=== PATIENT | female | born 1955 | race Hispanic/Latino ===

== ENCOUNTER 2019-11-29 12:22 | Inpatient (IN) | payer MEDICARE, OTHER ==
[2019-11-29 13:06] LABS: #Eosinphils 0.1 thou/uL (0.0-0.7); #Lymphocytes 1.4 thou/uL (1.20-3.40); #Monocytes 0.7 thou/uL (0.11-0.59); #Neutrophils 6.8 thou/uL (1.40-6.50); %Basophils 0.2 % (0.0-1.0); %Eosinophils 0.6 % (0.0-10.0); %Lymphocytes 15.1 % (21.0-51.0); %Monocytes 7.7 % (0.0-10.0); %Neutrophils 76.5 % (42.0-75.0); Hemoglobin 13.8 g/dL (12.0-16.0); Mean Corpuscular HGB CONC 32.9 g/dL (32.0-36.0); Mean Corpuscular Hemoglobin 29.3 pg (27.0-31.0); Mean Corpuscular Volume 89.2 fL (78.0-98.0); Mean Platelet Volume 8.6 fL (7.4-10.4); Platelet Count 191 thou/uL (130-400); RBC Distribution Width 12.1 % (11.5-14.5); Red Blood Cell (RBC) Count 4.71 mill/uL (4.20-5.40); White Blood Cell (WBC) Count 8.9 thou/uL (4.8-10.8)
[2019-11-29 13:19] LABS: ALT (SGPT) 13 U/L (8-55); AST (SGOT) 49 U/L (5-34); Albumin 3.6 g/dL (3.4-4.8); Alkaline Phosphatase 65 U/L (40-110); Anion Gap 14 mmol/L (10-20); BUN (Urea Nitrogen) 14 mg/dL (9.8-20.1); Bilirubin, Total 0.8 mg/dL (0.2-1.2); CK (CPK) 439 U/L (29-168); Calc. Creatinine Clearance 0 mL/min (70-130); Calcium 9.1 mg/dL (7.8-10.44); Carbon Dioxide 25 mmol/L (23-31); Chloride 103 mmol/L (98-107); Estimated GFR-MDRD 81; Globulin 2.7 g/dL (2.4-3.5); Glucose 114 mg/dL (80-115); Potassium 3.9 mmol/L (3.5-5.1); Protein, Total 6.3 g/dL (6.0-8.3); Sodium 138 mmol/L (136-145)
--- NOTE | 2019-11-29 13:22 | RAD ---
XR Chest 1 View Portable History: Chest pain Comparison: Radiograph November 19, 2019 Findings: Subtle left basilar opacity. Remainder of the lungs are relatively clear. No pneumothorax. No effusion. Impression: Left lower lobe pneumonia/aspiration. Follow-up after treatment recommended.
--- NOTE | 2019-11-29 14:36 | CT ---
Exam: Head CT without contrast HISTORY: Recent aneurysm coiling. Altered mental status. COMPARISON: 11/22/2019 FINDINGS: Hemorrhage: Residual intraparenchymal hematoma centered in the left temporal lobe. Hematoma has decre ased in size and currently measures 1.8 x 0.8 cm. There is associated peripheral cytotoxic edema. Brain parenchyma: Expected evolutionary changes due to a left MCA distribution infarct along with vas ogenic edema involving the left temporal and parietal lobe. The overall degree of edema has decreased since the previous examination. Stable coil massa long thel eft M1 distribution. Preservati on of cortical quintero-white matter in the right cerebrum. 0.2 cm a left right subfalcine herniation. Ventricular system: Ventricles and sulci are patent and symmetric. Calvarium: Intact. Sinuses and mastoid air cells: Adequate aeration. IMPRESSION: 1. Stable coil mass 2. No evidence of new intracranial hemorrhage 3. Improving vasogenic and cytotoxic edema. Residual edema does remain in the left MCA distribution. Improving but persistent left temporal lobe intraparenchymal hematoma.
[2019-11-29] MEDS ORDERED: Enoxaparin Sodium 80 MG/0.8 ML SYRINGE ONE (15:28)
[2019-11-29] MEDS ORDERED: Aspirin Chewable 81 MG TAB ONE (15:37)
--- NOTE | 2019-11-29 15:37 | PDOC.FPRHP ---
- History of Present Illness Chief Complaint: chest pain History of Present Illness: 64 y/o F with PMHx with recent subarachnoid hemorrhage s/p ruptured aneurysm with residual R sided upper extremity weakness and expressive aphasia who was brought to ED after an episode of chest pain during her occupational therapy session this AM. Her family member who is present reports that during the session she became weak, diaphoretic, and was clutching her chest. She also had a few episodes of vomiting and an episode of diarrhea afterwards. An EKG was performed at the rehab facility and is available for review. Patient unable to provide much history due to expressive aphasia. She is no longer clutching her chest and her family member reports that she has not really seemed distressed since that time. She is also pointing to her abdomen when asked about pain. Additional pertinent PMHx includes CAD s/p CABG, hx of ID, HTN, HLD, and DM. ED Course: EKG: bradycardia, T wave inversions in V3-V5 Labs: Troponin 5.88 > 33; CBC, CMP wnl Meds: ASA, therapeutic lovenox 1 mg/kg - Allergies/Adverse Reactions Allergies Allergy/AdvReac Type Severity Reaction Status Date / Time No Known Allergies Allergy Unverified 11/19/19 18:40 - Home Medications Medication Instructions Recorded Confirmed Type Atorvastatin Calcium 80 mg PO DAILY 11/19/19 11/19/19 History Ezetimibe [Zetia] 10 mg PO DAILY 11/19/19 11/19/19 History Losartan Potassium 100 mg PO DAILY 11/19/19 11/19/19 History PARoxetine HCl [Paxil] 10 mg PO DAILY 11/19/19 11/19/19 History metFORMIN [Glucophage] 500 mg PO BID- 11/19/19 11/19/19 History - History PMHx: subarachnoid hemorrhage 2/2 ruptured aneurysm, R sided deficits, expressive aphasia, CAD s/p CABG, hx ID, HTN, HLD, DM PSHx: neurosurgical coil, CABG, Hysterectomy and BSO with bladder suspension FHx: Father - DM, CAD Sisters - Long QT Syndrome, Social: never smoker, non-drinker, with children, walks for exercise - Review of Systems ROS unobtainable: other (limited due to aphasia) Cardiovascular: reports: chest pain Gastrointestinal: reports: nausea, vomiting, diarrhea, abdominal pain - Vital signs BP: 154/90, Pulse: 58, Resp: 26, O2 sat: 95 on (Room Air), Time: 11/29/2019 14: 00. - Physical Exam Constitutional: NAD (awake, alert, unable to assess orientation due to aphasia) HEENT: normocephalic and atraumatic, PERRLA, grossly normal vision, grossly normal hearing Neck: no LAD, no thyromegaly Heart: pulses present, no edema -Heart: bradycardia, regular rhythm -Lungs: crackles L lower lobe, lungs otherwise clear to auscultation Abdomen: soft -Abdomen: mild lower abdominal tenderness over bladder, no rebound, positive bowel sounds Musculoskeletal: normal structure -Neurological: persistent RUE weakness 3/5; bilateral LE with 5/5 strength; L ceiling cleaner strength intact. Gross expressive aphasia but appears to understand most questions. Skin: no rash/lesions, capillary refill <2 seconds Heme/Lymphatic: no unusual bruising or bleeding, no LAD Psychiatric: other (unable to assess due to aphasia) FMR H&P: Results - Labs Result Diagrams: 11/30/19 03:16 11/30/19 03:16 Lab results: WBC 8.9 thou/uL (4.8-10.8) 11/29/19 12:44 Hgb 13.8 g/dL (12.0-16.0) 11/29/19 12:44 Hct 42.0 % (36.0-47.0) 11/29/19 12:44 MCV 89.2 fL (78.0-98.0) 11/29/19 12:44 Plt Count 191 thou/uL (130-400) 11/29/19 12:44 Neutrophils % 76.5 % (42.0-75.0) H 11/29/19 12:44 Sodium 138 mmol/L (136-145) 11/29/19 12:44 Potassium 3.9 mmol/L (3.5-5.1) 11/29/19 12:44 Chloride 103 mmol/L (98-107) 11/29/19 12:44 Carbon Dioxide 25 mmol/L (23-31) 11/29/19 12:44 BUN 14 mg/dL (9.8-20.1) 11/29/19 12:44 Creatinine 0.72 mg/dL (0.6-1.1) 11/29/19 12:44 Glucose 114 mg/dL (80-115) 11/29/19 12:44 Calcium 9.1 mg/dL (7.8-10.44) 11/29/19 12:44 Total Bilirubin 0.8 mg/dL (0.2-1.2) 11/29/19 12:44 AST 49 U/L (5-34) H 11/29/19 12:44 ALT 13 U/L (8-55) 11/29/19 12:44 Alkaline Phosphatase 65 U/L (40-110) 11/29/19 12:44 Creatine Kinase 439 U/L (29-168) H 11/29/19 12:44 CK-MB (CK-2) 59.0 ng/mL (0-6.6) H* 11/29/19 12:44 Serum Total Protein 6.3 g/dL (6.0-8.3) 11/29/19 12:44 Albumin 3.6 g/dL (3.4-4.8) 11/29/19 12:44 - EKG Interpretation EKG: EKG taken at rehab showing NSR with ST segment elevated (not meeting STEMI criteria) in V3-V6. Repeat EKG in ER showing resolution of these elevations and in fact inverted T- waves in the same leads. - Radiology Interpretation Chest x-ray Status: image reviewed by me, report reviewed by me Additional comment: possibly increased density in LLL, stable sternotomy wires CT scan - head Status: report reviewed by me Additional comment: stable compared to prior FMR H&P: A/P - Problem List (1) Chest pain Current Visit: Yes Status: Acute Code(s): R07.9 - CHEST PAIN, UNSPECIFIED - Plan Likely ACS; hx CAD s/p CABG Chest pain with N/V/D and diaphoresis this AM during rehab. EKG from rehab facility reviewed, appears to have had some ST changes although elevations not meeting criteria for STEMI. Initial EKG in ED with no ST elevations, but T wave inversions in I, V4, V5, bradycardia. Repeat troponin over 33. - Cardiology, Dr. Lyeva, consulted - s/p ASA and therapeutic lovenox in the ED - continue to trend troponins, repeat EKG if continues to rise - monitor for symptoms - prn nitro for chest pain - will not do stress test at this time due to rate of rise in troponins - ED physician discussed anti-coagulation with neurosurgery and has approved - NPO, on LR at 110 ml/hr - mg, phos, tsh wnl s/p subarachnoid hemorrhage 2/2 ruptured aneurysm Residual R upper extremity weakness, expressive aphasia, and dyshpagia. Neurosurgery aware of anti-coagulation. - monitor for new neuro deficits Possible LLL aspiration pneumonia Noted on CXR in ED today with some LLL crackles on exam. WBC wnl. Family member reports some aspiration with advancement of diet yesterday. - procalcitonin pending - consider unasyn if procal elevated - monitor for respiratory symptoms Dysphagia s/p subarachnoid hemorrhage - NPO - f/u bedside swallow - REFERENCE INVESTIGATOR consulted for eval and treat Expressive aphasia Tracks well and appears to understand most questions but mumbles when trying to speak. Does answer some yes/no questions by shaking head, but inconsistently. - continue to monitor - REFERENCE INVESTIGATOR consulted Type II DM controlled on admission - continue home meds - mild SSI HTN - continue home meds - maintain SBP <180 HLD - continue home statin Disposition/LOS: Dispo: admit to CCU IVF: mIVF LR 110 ml/hr DVT ppx: therapuetic lovenox Diet: NPO FMR H&P: Upper Level - Pertinent history 64 yo F recently discharged to inpatient rehab following hospitalization for SAH 2/2 left aneurysm, presents from rehab after having acute chest pain, nausea , vomiting, and sweating between 6 and 7 am this morning when working with OT. History provided mostly by daughter and ER. Patient continued to feel unwell. EKG obtained at rehab showing some ST elevation. Labs were obtained at rehab but daughter did not know which labs nor their values. Patient currently denies chest pain. Complains of some belly pain. ROS is limited due to patient's aphasia. - Pertinent findings VS: as above in administration internship note PEx: Gen : NAD, well groomed Neuro: tracks w/ eyes, responds yes/no by shaking head to questions, seems to understand questions but still aphasic in responses, garbled speech, strength 5/ 5 LE b/l, L arm able to move against gravity, R arm deficit c/w previous exam HEENT: PEERLA, EOMI, neck supple/midline. Resp: mild crackles over LLL CV: RRR, no murmurs, chest nonTTP Abd: +BS, mild diffuse tenderness to palpation, soft, nondistended Trop: 5.884. Ten days prior trop was 0.055. - Plan Date/Time: 11/29/19 1537 64 yo F, recent hospitalization for SAH 2/2 left intracranial aneurysm admitted for: ACS rule out DDx: NSTEMI vs unstable angina vs demand ischemia - somewhat bradycardic. EKG changes w/ EKG earlier this morning compared to ER. Appeared to have ST elevations in concurrent leads, not meeting STEMI criteria, that have now resolved. - not currently having chest pain, although patient's symptoms are difficult to assess given recent aphasia/SAH - recent A1c 6.6, and FLP w/ mildly elevated cholesterol - TSH, magnesium, phosphorus pending - Echo on 11/19/19 showed EF 45-50%, mild MR and mild TR - HEART score 9. - LVX 1 mg/kg Possible aspiration PNA - CXR showing increased LLL - setting of speech aphasia and recently advanced diet - consider unasyn for treatment - procalcitonin pending CAD - hx of CABG, double bypass 2010, stents in 2010 and 2013. - Bradycardia: hold beta blockers S/p coiling of left M2 anuerysm causing SAH - maintain SBP <180 - Neurosurg contacted in ER and okay to anticoagulate HTN - SBP < 180 - continue losartan Hyperlipidemia - continue statin and ezetimibe Type 2 DM, controlled - continue metformin - mild SSI, accuchecks q6h Code: FULL Anticoag: LVX Abx: pending procalcitonin Fluids: LR at 110 mL/hr, MIVF IAlicja, PGY-2, have evaluated this patient and agree with findings /plan as outlined by administration internship resident. Pertinent changes/additions are listed above. Addendum - Attending - Attending Attestation Date/Time: 11/30/19 1351 I personally evaluated the patient and discussed the management with Dr. Stone on day of admission. I agree with the History, Examination, Assessment and Plan documented above with any addition or exceptions noted below. Pt s/p COVID (neg test p illness on last admission) with subsequent CVA and now with NSTEMI type 1. Await cardiology recs.
[2019-11-29] MEDS ORDERED: Aspirin 300 MG Suppository ONE (15:38)
[2019-11-29] MEDS ORDERED: Dextrose 5% in Water 1,000 ML IV PRN (16:19)
[2019-11-29] MEDS ORDERED: Dextrose 50% Abboject 50 ML SYRINGE SLOW IVP PRN (16:19)
[2019-11-29] MEDS ORDERED: HumaLOG 300 UNITS/3 ML VIAL SC PRN (16:19)
[2019-11-29] MEDS ORDERED: Nitroglycerin 0.4 MG TAB (25 Tab Bottle) PO PRN (16:49)
[2019-11-29 16:54] LABS: Magnesium 1.7 mg/dL (1.6-2.6); Phosphorus 3.6 mg/dL (2.3-4.7)
--- NOTE | 2019-11-29 17:25 | PDOC.BPN ---
- Brief Progress Note Discussed case w/ Dr. Leyva. Cardiology consult placed. He would like patient in the ICU. He agrees with the aspirin and Lovenox 1 mg/kg dose given in the ER at 15:41. Second troponin resulted at 16:32; result was increased at 33.850 from 5.8. Given recent left M2 aneursym coiling on 11/18, we will continue to monitor in the ICU.
[2019-11-29 19:55] LABS: Critical Call Chem Troponin I RESULT DECREASING; Troponin I 32.424 ng/mL (< 0.028)
--- NOTE | 2019-11-29 21:40 | CON ---
DATE OF CONSULTATION: PRIMARY WAX SPECIALIST: Dk Ragland MD REASON FOR CONSULTATION: Non-ST elevation myocardial infarction. HISTORY OF PRESENT ILLNESS: Ms. Beltran is a 64-year-old woman, who recently was admitted to the hospital with intracranial hemorrhage due to aneurysm and subarachnoid hemorrhage. She had successful coiling done about 10 days ago. She is at the rehab, started clutching her chest. There was an EKG at the rehab, which showed some ST elevation in the anterior chest leads. She was sent here. The pain in her chest resolved in terms of versus indicating that she was holding her chest at that time and later was not doing that, and the EKG showed resolution of the ST elevation. Troponin levels have proven to be elevated. The patient is resting comfortably now. She received 80 mg of Lovenox and a rectal aspirin. PAST MEDICAL HISTORY: She has a complicated cardiac history as outlined extensively by Dr. Ragland. The patient underwent emergency bypass surgery in 2010 at the LAD and obtuse marginal. Later had repeat cardiac catheterization, found to have in-stent restenosis of an LAD stent. It looks like she has done well from a cardiac standpoint up until recently. As mentioned, she did have intracranial hemorrhage. MEDICATIONS: She has received; 1. Aspirin rectally. 2. Subcutaneous Lovenox. REVIEW OF SYSTEMS: Not obtainable. Due to the intracranial hemorrhage, she has aphasia. PHYSICAL EXAMINATION: GENERAL: Cooperative elderly woman. She is aphasic and it sounds like she has receptive and expressive aphasia. VITAL SIGNS: Blood pressure is 130 systolic and pulse in the 70s. LUNGS: Clear. CARDIAC: Normal S1 and normal S2. ABDOMEN: Soft and nontender. EXTREMITIES: Warm and dry. No clubbing. No cyanosis. There is no edema. LABORATORY DATA: The troponin level was 5.8, then went to 33.8. Creatinine 0.7. The EKG did show some ST elevation on EKG at the rehab, it is mild, but there is at least [address]-elevation in V3, 2 mm in V4, and 1 mm in V5, but this followup EKG show resolution of the ST elevation with T-wave inversion. ASSESSMENT: 1. Recent intracranial hemorrhage with subarachnoid bleed, status post successful coiling. 2. Coronary artery disease with previous bypass surgery and stent implantation. 3. Remains aphasic. PLAN: 1. She has received one dose of Lovenox subcutaneously. 2. She has received aspirin. 3. Discussed with the Neurosurgery Service, Flaco Langford, who indicates that it is safe to proceed with anticoagulation. We will notify Dr. Ragland. The patient is unable to eat now, so therefore she will be n.p.o. anyway. As mentioned, she has received aspirin. She received one dose of Lovenox. Further recommendations after Dr. Ragland see the patient tomorrow morning. Job ID: [id number]
[2019-11-29] MEDS: Lactated Ringer's 1,000 ML IV SCH (23:22)
[2019-11-29] MEDS: metFORMIN 500 MG TAB PO SCH (23:23)
[2019-11-30] MEDS: Lactated Ringer's 1,000 ML IV SCH ×2 (01:17→17:20)
[2019-11-30] MEDS ORDERED: Enoxaparin Sodium 40 MG/0.4 ML SYRINGE SC SCH (02:00)
[2019-11-30 03:42] LABS: #Basophils 0.1 thou/uL (0.0-0.2); #Eosinphils 0.1 thou/uL (0.0-0.7); #Lymphocytes 1.8 thou/uL (1.20-3.40); #Monocytes 0.8 thou/uL (0.11-0.59); #Neutrophils 5.2 thou/uL (1.40-6.50); %Basophils 0.7 % (0.0-1.0); %Eosinophils 1.5 % (0.0-10.0); %Lymphocytes 22.6 % (21.0-51.0); %Monocytes 9.9 % (0.0-10.0); %Neutrophils 65.3 % (42.0-75.0); Hemoglobin 13.1 g/dL (12.0-16.0); Mean Corpuscular HGB CONC 34.5 g/dL (32.0-36.0); Mean Corpuscular Hemoglobin 31.4 pg (27.0-31.0); Mean Platelet Volume 8.4 fL (7.4-10.4); Platelet Count 159 thou/uL (130-400); RBC Distribution Width 11.9 % (11.5-14.5); Red Blood Cell (RBC) Count 4.17 mill/uL (4.20-5.40)
[2019-11-30 04:45] LABS: ALT (SGPT) 18 U/L (8-55); AST (SGOT) 92 U/L (5-34); Alkaline Phosphatase 52 U/L (40-110); Anion Gap 11 mmol/L (10-20); BUN (Urea Nitrogen) 11 mg/dL (9.8-20.1); Bilirubin, Total 0.6 mg/dL (0.2-1.2); Calc. Creatinine Clearance 93 mL/min (70-130); Calcium 8.2 mg/dL (7.8-10.44); Carbon Dioxide 27 mmol/L (23-31); Chloride 103 mmol/L (98-107); Estimated GFR-MDRD 90; Globulin 2.6 g/dL (2.4-3.5); Glucose 84 mg/dL (80-115); Potassium 3.5 mmol/L (3.5-5.1); Protein, Total 5.6 g/dL (6.0-8.3); Sodium 137 mmol/L (136-145)
--- NOTE | 2019-11-30 07:22 | PDOC.FM ---
- Subjective Subjective: Pt had no events overnight. Her chest pain is resolved this morning. Continues to be aphasic but appears to understand what you tell her and follows most commands. Nodded when I discussed her getting a cardiac cath today. - Objective Vital Signs & Weight: Vital Signs (12 hours) Temp Pulse Ox 11/30/19 06:58 96 11/30/19 04:00 97.9 F 11/30/19 00:00 98.3 F 11/29/19 22:45 98.3 F 95 Weight Weight 69.9 kg Most Recent Monitor Data Heart Rate from ECG 49 NIBP 144/73 NIBP BP-Mean 96 Respiration from ECG 19 SpO2 98 I&O: 11/29/19 11/30/19 12/01/19 06:59 06:59 06:59 Intake Total 407 Output Total 0 Balance 407 Result Diagrams: 11/30/19 03:16 11/30/19 03:16 Phys Exam - Physical Examination Constitutional: NAD HEENT: moist MMs, sclera anicteric Neck: full ROM Respiratory: no wheezing, clear to auscultation bilateral no signs of respiratory distress Mildly bradycardic, did not hear murmur heard during previous admission Gastrointestinal: soft, non-tender, no distention Musculoskeletal: no edema, pulses present 2/5 strength in RUE, 4/5 RLE, 5/5 left extremities, mostly aphasic Follows most commands Deviation from normal: Flat affect Skin: no rash, cap refill <2 seconds Dx/Plan - Plan Plan: 64yo F w/ hx of CAD s/p CABG presented to ED from rehab center for CP, found to have NSTEMI. Recently admitted for subarachnoid and parenchymal hemorrhage of left temporal due to M2 aneurysm that was coiled on 11/18. CREDIT OFFICER -s/p coiling for subarachnoid and parenchymal hemorrhage from M2 aneurysm on 11/18 -expressive aphasia and residual right sided weakness and dysphagia -PT/OT/Speech, bed side swallow Cards -Bradycardic w/ no chest pain currently -Cardiology consulted for bradycardia during previous admission and noted as benign, avoid beta-blockers and NDHP -NSTEMI - Classic angina with exertion with trop trend 5 > 33 > 32 -EKG at rehab showed ST elevations not meeting STEMI criteria, ED EKG T wave inversion in I, V4, V5 -Received ASA and therapeutic lovenox in ED -Cards discussed anticoag with neurosurg prior 2/2 recent coiling and brain bleed -Cardiology consulted, Dr. Leyva planning for cardiac cath today -Hx HTN: hold home meds for now -Maintain BP <180 2/2 recent coiling and brain bleed Pulm -Satting 98% on RA, non labored breathing -CXR in ED showing LLL infiltrate resembling aspiration/pna -Pt is asx and without signs/sx consistent w/ this, will defer treatment for now GI/F/E/N -Normal abdominal exam -NPO for procedure, pending bedside swallow prior to diet being resumed -Hx Type II DM, takes metformin, recently was on steroids for brain edema -SSI and resume home rx once tolerating PO -IVF: LR @ 110 I/D -No current abx therapy as pt showing no signs/sx from CXR findings to indicate PNA Disposition/LOS: Dispo: admit to CCU IVF: mIVF LR 110 ml/hr DVT ppx: therapuetic lovenox pre procedural, now held Diet: NPO, pending procedure and bedside swallow PLAN: Pt currently appears stable. No active chest pain indicated. Plan is for cardiac cath to be done today. Following this and pending results pt is to have bedside swallow to assess for dysphagia and PO tolerance. Will continue to monitor BP due to risks associated with recent coiling/brain bleed. Addendum - Attending - Attending Attestation Date/Time: 11/30/19 1161 I personally evaluated the patient and discussed the management with Dr. Blue. I agree with the History, Examination, Assessment and Plan documented above with any addition or exceptions noted below.
[2019-11-30] MEDS ORDERED: Communication Order-Pharmacy FS SCH (08:15)
[2019-11-30] MEDS ORDERED: Sodium Chloride 0.9% 1,000 ML IV SCH (08:15)
[2019-11-30] MEDS ORDERED: Heparin 10,000 UNITS/ 10 ML VIAL ONE (08:24)
[2019-11-30] MEDS ORDERED: Fentanyl 100 MCG/2 ML VIAL ONE (08:56)
[2019-11-30] MEDS ORDERED: Adenosine 6 MG/2 ML VIAL ONE (09:28)
[2019-11-30] MEDS ORDERED: Iopamidol 370 76% 50 ML VIAL FS ONE (10:49)
[2019-11-30] MEDS ORDERED: Morphine 2 MG/ML VIAL SLOW IVP PRN (10:49)
[2019-11-30] MEDS ORDERED: Iopamidol 370 76% 100 ML VIAL ONE (10:49)
[2019-11-30] MEDS: Sodium Chloride 0.9% 1,000 ML IV SCH ×2 (11:00→17:15)
[2019-11-30] MEDS: Losartan 25 MG TAB PO SCH (11:57)
[2019-11-30] MEDS: Ezetimibe 10 MG TAB PO SCH (11:58)
[2019-11-30] MEDS: Atorvastatin Calcium 40 MG TAB PO SCH (11:58)
[2019-11-30] MEDS: PARoxetine 20 MG TAB PO SCH (11:58)
[2019-11-30 15:47] LABS: SARS-CoV-2 MS2 Positive; SARS-CoV-2 N Gene Negative; SARS-CoV-2 S Gene Negative; SARS-CoV-2 by NAA Not Detected (NotDetected); SARS-CoV-2 orf1ab Negative
[2019-11-30] MEDS ORDERED: metFORMIN 500 MG TAB PO SCH (17:00)
[2019-11-30] MEDS: metFORMIN 500 MG TAB PO SCH (17:19)
[2019-11-30] MEDS ORDERED: Lactated Ringer's 1,000 ML IV SCH (23:45)
--- NOTE | 2019-12-01 00:33 | CON ---
DATE OF CONSULTATION: 11/30/2019 HISTORY OF PRESENT ILLNESS: Ms. Beltran is 64-year-old female who recently had an aneurysm bleed. This was coiled. She started having chest discomfort and was transferred here for further evaluation, has been seen by Cardiology. She was taken to the technical laboratory asst. She denies having chest pain at this time. PAST MEDICAL HISTORY: Remarkable for: 1. Coronary bypass grafting in 2010. 2. History of cardiac catheterization with stenting in the past. 3. History of recent aneurysmal bleed. 4. History of lipid disorder. 5. History of diabetes. 6. History of hypertension. SOCIAL HISTORY: She is a nonsmoker and nondrinker. ALLERGIES: SHE HAS NO ALLERGIES REPORTED. REVIEW OF SYSTEMS: Otherwise negative. PHYSICAL EXAMINATION: GENERAL: She is in no distress. VITAL SIGNS: She is afebrile, heart rate 66, blood pressure 132/63. HEENT: Pupils reactive. Sclerae are anicteric. NECK: Without lymphadenopathy. LUNGS: Clear. HEART: Regular rhythm. S1 and S2 are normal. ABDOMEN: Soft and nontender. EXTREMITIES: Without clubbing, cyanosis or edema. NEUROLOGIC: Grossly nonfocal. LABORATORY DATA: White count 8, hemoglobin 13.1, platelets 159. Electrolytes are normal. Coags were normal back on the 18 of November. COVID screen was negative yesterday. IMPRESSION: She appears to be stable from a cardiac and pulmonary standpoint. We will follow with the other physicians caring for her. This is a 70 min visit with greater than 50% of the time spent on the unit with coordination of care. Job ID: [id number] [facility]
[2019-12-01 04:09] LABS: #Eosinphils 0.1 thou/uL (0.0-0.7); #Monocytes 0.6 thou/uL (0.11-0.59); #Neutrophils 4.3 thou/uL (1.40-6.50); %Basophils 0.8 % (0.0-1.0); %Eosinophils 1.5 % (0.0-10.0); %Lymphocytes 16.9 % (21.0-51.0); %Monocytes 10.4 % (0.0-10.0); %Neutrophils 70.4 % (42.0-75.0); Hemoglobin 12.2 g/dL (12.0-16.0); Mean Corpuscular HGB CONC 33.6 g/dL (32.0-36.0); Mean Corpuscular Hemoglobin 30.1 pg (27.0-31.0); Mean Corpuscular Volume 89.5 fL (78.0-98.0); Mean Platelet Volume 8.4 fL (7.4-10.4); Platelet Count 150 thou/uL (130-400); Red Blood Cell (RBC) Count 4.06 mill/uL (4.20-5.40); White Blood Cell (WBC) Count 6.1 thou/uL (4.8-10.8)
[2019-12-01 04:32] LABS: ALT (SGPT) 15 U/L (8-55); AST (SGOT) 54 U/L (5-34); Albumin 2.8 g/dL (3.4-4.8); Alkaline Phosphatase 49 U/L (40-110); Anion Gap 11 mmol/L (10-20); BUN (Urea Nitrogen) 7 mg/dL (9.8-20.1); Bilirubin, Total 0.6 mg/dL (0.2-1.2); Calc. Creatinine Clearance 105 mL/min (70-130); Calcium 8.2 mg/dL (7.8-10.44); Carbon Dioxide 27 mmol/L (23-31); Chloride 104 mmol/L (98-107); Estimated GFR-MDRD Greater than 90; Globulin 2.5 g/dL (2.4-3.5); Glucose 79 mg/dL (80-115); Potassium 3.5 mmol/L (3.5-5.1); Protein, Total 5.3 g/dL (6.0-8.3); Sodium 138 mmol/L (136-145)
[2019-12-01 05:12] VITALS: BMI 26.7
--- NOTE | 2019-12-01 06:56 | PDOC.FM ---
- Subjective Subjective: Cath yesterday. Showed 2 vessel disease and thrombus in LAD graft that they couldn't remove. Tolerated procedure well. No events overnight. Remains NPO pending SIGNAL MAINTAINER HELPER assessment. - Objective Vital Signs & Weight: Vital Signs (12 hours) Temp Pulse Ox 12/01/19 04:00 98.2 F 12/01/19 00:00 98.0 F 11/30/19 20:00 95 11/30/19 19:00 98.9 F Weight Weight 70.3 kg Most Recent Monitor Data Heart Rate from ECG 57 NIBP 125/68 NIBP BP-Mean 87 Respiration from ECG 15 SpO2 95 I&O: 11/29/19 11/30/19 12/01/19 06:59 06:59 06:59 Intake Total 407 2642 Output Total 0 Balance 407 2642 Result Diagrams: 12/01/19 03:58 12/01/19 03:58 Phys Exam - Physical Examination Constitutional: NAD HEENT: moist MMs, sclera anicteric Respiratory: no wheezing, clear to auscultation bilateral Mildly bradycardic in 50's, short systolic murmur left sternal Gastrointestinal: soft, non-tender Musculoskeletal: no edema, pulses present Right hand 2/5, RLE 4/5, Left extremities 5/5, aphasic Deviation from normal: Flat affect Skin: no rash, cap refill <2 seconds Dx/Plan - Plan Plan: Plan: 64yo F w/ hx of CAD s/p CABG presented to ED from rehab center for CP, found to have NSTEMI. Recently admitted for subarachnoid and parenchymal hemorrhage of left temporal due to M2 aneurysm that was coiled on 11/18. 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 Ragland - 2 Vessel disease in LAD and Cx, LAD graft had thrombus that was unable to be removed with thrombectomy, patent OM graft, Moderate LV dysfunction - medical management with baby asa, statin, glycemic control, BP control -Received ASA and therapeutic lovenox in ED -Cards discussed anticoag with neurosurg prior 2/2 recent coiling and brain bleed -Hx HTN: hold home meds for now -Maintain BP <180 2/2 recent coiling and brain bleed Pulm -Satting 97% on RA, non labored breathing GI/F/E/N -Normal abdominal exam -NPO pending SIGNAL MAINTAINER HELPER exam -NG tube in place for coughing/dysphagia to reduce aspiration risk -Hx Type II DM - Having couple lower sugars while NPO, D5 1/2 NS if sugars <75 -IVF: LR @ 125 Heme/I/D -No current abx therapy as pt showing no signs/sx from CXR findings to indicate PNA Disposition/LOS: Dispo: admit to CCU IVF: mIVF LR 125 ml/hr DVT ppx: SCD Diet: NPO, SIGNAL MAINTAINER HELPER eval PLAN: Currently stable without chest pain. Cath yesterday diagnostic only with no successful interventions. Will continue medical management of pts CAD. SIGNAL MAINTAINER HELPER assessment for dysphagia and failed bedside swallow. Transfer to tele today. Plan to return to inpt rehab. Addendum - Attending - Attending Attestation Date/Time: 12/01/19 [id number] I personally evaluated the patient and discussed the management with Dr. Blue. I agree with the History, Examination, Assessment and Plan documented above with any addition or exceptions noted below.
[2019-12-01] MEDS: Dextrose 5 %-0.45 % NaCl 1,000 ML IV SCH ×2 (08:04→15:15)
[2019-12-01] MEDS: Lactated Ringer's 1,000 ML IV SCH ×2 (08:19→15:49)
[2019-12-01] MEDS: Atorvastatin Calcium 40 MG TAB PO SCH (09:02)
[2019-12-01] MEDS: Aspirin Chewable 81 MG TAB PO SCH (09:02)
[2019-12-01] MEDS: Losartan 25 MG TAB PO SCH (09:02)
[2019-12-01] MEDS: PARoxetine 20 MG TAB PO SCH (09:03)
[2019-12-01] MEDS: Ezetimibe 10 MG TAB PO SCH (09:03)
[2019-12-01] MEDS ORDERED: Aluminum & Magnesium Hydroxide 60 ML, diphenhydrAMINE 150 MG, Lidocaine 2% Viscous Solu... SSW PRN (09:45)
--- NOTE | 2019-12-01 18:53 | PRG ---
DATE OF SERVICE: 12/01/2019 SUBJECTIVE: Kylah Beltran has no new complaints. She is tentatively scheduled to move out of the Critical Care Unit. OBJECTIVE: VITAL SIGNS: Heart rates in the 50s, blood pressure 142/69, respiratory rates in the teens. She has been walking in the [place] with Physical Therapy. LUNGS: Clear. HEART: Regular rhythm. ABDOMEN: Soft. LABORATORY DATA: White count 6.1, hemoglobin 12.2, platelets 150,000. Electrolytes are normal. Creatinine 0.58. IMPRESSION: Status post cardiac catheterization emergently, clinically stable. She is probably a candidate to go straight back to rehab, given her stability here in 24 to 48 hours. We will sign off. Job ID: [id number]
[2019-12-02] MEDS: Dextrose 5 %-0.45 % NaCl 1,000 ML IV SCH (01:37)
--- NOTE | 2019-12-02 05:34 | PDOC.EVN ---
Event Note - Event Note Event Note: reported to me an episode of NSVTach will order repeat labs and mag
[2019-12-02 06:14] LABS: Anion Gap 7 mmol/L (10-20); BUN (Urea Nitrogen) Less than 4 mg/dL (9.8-20.1); Calc. Creatinine Clearance 100 mL/min (70-130); Calcium 8.2 mg/dL (7.8-10.44); Carbon Dioxide 30 mmol/L (23-31); Chloride 106 mmol/L (98-107); Estimated GFR-MDRD Greater than 90; Glucose 145 mg/dL (80-115); Magnesium 1.5 mg/dL (1.6-2.6); Potassium 3.2 mmol/L (3.5-5.1); Sodium 140 mmol/L (136-145)
--- NOTE | 2019-12-02 06:53 | PDOC.FM ---
- Subjective Subjective: Pt had 4 beats of multifocal tachycardia with 2 ventricular beats. She was asx at this time. BMP and lytes drawn and replaced accordingly. Otherwise no events overnight. Pt has no complaints this morning that she attempts to express. - Objective Vital Signs & Weight: Vital Signs (12 hours) Temp Pulse Resp BP Pulse Ox 12/02/19 03:47 97.9 F 52 L 14 138/63 97 12/02/19 00:00 128/61 12/01/19 20:30 97.4 F L 53 L 16 144/64 H 95 12/01/19 19:00 98.1 F Weight Weight 69.808 kg Most Recent Monitor Data Heart Rate from ECG 56 NIBP 127/54 NIBP BP-Mean 78 Respiration from ECG 18 SpO2 96 I&O: 11/30/19 12/01/19 12/02/19 06:59 06:59 06:59 Intake Total 407 2642 1957 Output Total 0 Balance 407 2642 1957 Result Diagrams: 12/01/19 03:58 12/02/19 14:09 Phys Exam - Physical Examination Constitutional: NAD HEENT: moist MMs, sclera anicteric Respiratory: no wheezing, clear to auscultation bilateral Cardiovascular: RRR short systolic murmur, left sternal border Gastrointestinal: soft, non-tender Musculoskeletal: no edema Poorly follows commands this morning - attempts different actions aphasic Skin: no rash, cap refill <2 seconds Dx/Plan - Plan Plan: 64yo F w/ hx of CAD s/p CABG presented to ED from rehab center for CP, found to have NSTEMI. Recently admitted for subarachnoid and parenchymal hemorrhage of left temporal due to M2 aneurysm that was coiled on 11/18. 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 Ragland - 2 Vessel disease in LAD and Cx, LAD graft had thrombus that was unable to be removed with thrombectomy, patent OM graft, Moderate LV dysfunction - medical management with baby asa, statin, glycemic control, BP control -Hx HTN: resume home rx -Maintain BP <180 2/2 recent coiling and brain bleed Pulm -Satting 98% on RA, non labored breathing GI/F/E/N -Normal abdominal exam -CC diet with OUTPATIENT COORDINATOR modifications -Hx Type II DM - SSI, metformin Heme/I/D -No current abx therapy as pt showing no signs/sx from CXR findings to indicate PNA Disposition/LOS: Dispo: admit to tele, ELOS 1-2 days IVF: SL DVT ppx: SCD Diet: CC - OUTPATIENT COORDINATOR modifications PLAN: Tele monitoring to confirm stability following ACS event. Discussed with Dr. Ragland - pt will likely be able to return to inpt rehab tomorrow as long as no changes in her clinical course. Cont therapies while here. Addendum - Attending - Attending Attestation Date/Time: 12/02/19 6816 I personally evaluated the patient and discussed the management with Dr. Blue. I agree with the History, Examination, Assessment and Plan documented above with any addition or exceptions noted below.
[2019-12-02] MEDS ORDERED: Potassium Chloride 40 MEQ in Sodium Chloride 0.9% 250 ML 250 ML IVPB SCH (07:00)
[2019-12-02] MEDS: Losartan 25 MG TAB PO SCH (08:39)
[2019-12-02] MEDS: PARoxetine 20 MG TAB PO SCH (08:40)
[2019-12-02] MEDS: Atorvastatin Calcium 40 MG TAB PO SCH (08:40)
[2019-12-02] MEDS: Ezetimibe 10 MG TAB PO SCH (08:40)
[2019-12-02] MEDS: Aspirin Chewable 81 MG TAB PO SCH (08:41)
[2019-12-02 14:37] LABS: Magnesium 1.7 mg/dL (1.6-2.6)
[2019-12-03 04:53] LABS: Anion Gap 11 mmol/L (10-20); BUN (Urea Nitrogen) Less than 4 mg/dL (9.8-20.1); Calc. Creatinine Clearance 109 mL/min (70-130); Carbon Dioxide 26 mmol/L (23-31); Chloride 105 mmol/L (98-107); Potassium 3.3 mmol/L (3.5-5.1); Sodium 139 mmol/L (136-145)
[2019-12-03 04:54] LABS: Calcium 8.5 mg/dL (7.8-10.44); Estimated GFR-MDRD Greater than 90; Glucose 97 mg/dL (80-115); Magnesium 1.7 mg/dL (1.6-2.6)
--- NOTE | 2019-12-03 07:01 | PDOC.FM ---
- Subjective Subjective: No events overnight. No further telemetry events, remained sinus jer. Denies any pain this morning. - Objective Vital Signs & Weight: Vital Signs (12 hours) Temp Pulse Resp BP Pulse Ox 12/03/19 04:00 97.8 F 53 L 20 112/58 L 97 12/02/19 19:35 98.5 F 56 L 16 138/65 95 Weight Weight 73.663 kg Most Recent Monitor Data Heart Rate from ECG 56 NIBP 127/54 NIBP BP-Mean 78 Respiration from ECG 18 SpO2 96 I&O: 12/02/19 12/03/19 12/04/19 06:59 06:59 06:59 Intake Total 1957 550 Balance 1957 550 Result Diagrams: 12/01/19 03:58 12/03/19 03:54 Phys Exam - Physical Examination Constitutional: NAD HEENT: moist MMs No resp distress Sinus jer, short syst murmur Gastrointestinal: soft, non-tender largely aphasic, minimal movements in right hand, moving all other extrem Skin: cap refill <2 seconds Dx/Plan - Plan Plan: 64yo F w/ hx of CAD s/p CABG presented to ED from rehab center for CP, found to have NSTEMI. Recently admitted for subarachnoid and parenchymal hemorrhage of left temporal due to M2 aneurysm that was coiled on 11/18. 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 Ragland - 2 Vessel disease in LAD and Cx, LAD graft had thrombus that was unable to be removed with thrombectomy, patent OM graft, Moderate LV dysfunction - medical management with baby asa, statin, glycemic control, BP control - cardiac rehab -Hx HTN: resume home rx, controlled -Maintain BP <180 2/2 recent coiling and brain bleed Pulm -Satting 97% on RA, non labored breathing GI/F/E/N -Normal abdominal exam -CC diet with MARINE ENGINEERING TECHNICIANS modifications -Hx Type II DM - SSI, metformin Heme/I/D -Cell counts WNL -No abx Disposition/LOS: Dispo: admit to tele, ELOS 1-2 days IVF: SL DVT ppx: SCD Diet: CC - MARINE ENGINEERING TECHNICIANS modifications PLAN: Tele monitoring. Arranging placement back in inpt rehab for therapies. Pt otherwise stable. Continue medical management of CAD. Addendum - Attending - Attending Attestation Date/Time: 12/03/19 6048 I personally evaluated the patient and discussed the management with Dr. Blue. I agree with the History, Examination, Assessment and Plan documented above with any addition or exceptions noted below.
[2019-12-03] MEDS ORDERED: Potassium Chloride 20 MEQ TAB PO SCH (07:15)
--- NOTE | 2019-12-03 08:12 | EKG ---
Test Reason : POST CATH Blood Pressure : / mmHG Vent. Rate : 060 BPM Atrial Rate : 060 BPM P-R Int : 178 ms QRS Dur : 094 ms QT Int : 520 ms P-R-T Axes : 049 013 177 degrees QTc Int : 520 ms Normal sinus rhythm Inferior infarct (cited on or before 19-NOV-2019) Marked T wave abnormality, consider anterolateral ischemia Prolonged QT Abnormal ECG When compared with ECG of 29-NOV-2019 17:12, (Unconfirmed) T wave inversion now evident in Inferior leads T wave inversion more evident in Anterior leads QT has lengthened Confirmed by DR. Doron RODRIGUEZ ([id number]) on 12/03/2019 8:11:49 AM Referred By: IZABELLA Confirmed By:DR. Doron RODRIGUEZ
[2019-12-03] MEDS: Aspirin Chewable 81 MG TAB PO SCH (08:16)
[2019-12-03] MEDS: PARoxetine 20 MG TAB PO SCH (08:17)
[2019-12-03] MEDS: Atorvastatin Calcium 40 MG TAB PO SCH (08:17)
[2019-12-03] MEDS: Ezetimibe 10 MG TAB PO SCH (08:18)
[2019-12-03] MEDS: Losartan 25 MG TAB PO SCH (08:18)
--- NOTE | 2019-12-03 16:37 | EKG ---
Test Reason : Blood Pressure : / mmHG Vent. Rate : 059 BPM Atrial Rate : 059 BPM P-R Int : 192 ms QRS Dur : 098 ms QT Int : 518 ms P-R-T Axes : 062 023 207 degrees QTc Int : 512 ms Sinus bradycardia Inferior infarct (cited on or before 19-NOV-2019) Prolonged QT Abnormal ECG When compared with ECG of 30-NOV-2019 11:30, (Unconfirmed) Serial changes of Inferior infarct Present Confirmed by DR. Doron RODRIGUEZ ([id number]) on 12/03/2019 4:37:02 PM Referred By: IZABELLA Confirmed By:DR. Doron RODRIGUEZ
--- NOTE | 2019-12-04 05:49 | PDOC.FM ---
- Subjective Subjective: Patient with no acute concerns, more expressive than yesterday but with nonsensical speech. - Objective MAR Reviewed: Yes Vital Signs & Weight: Vital Signs (12 hours) Temp Pulse Resp BP Pulse Ox 12/04/19 04:00 98.5 F 48 L 20 125/60 96 12/03/19 20:05 95 12/03/19 19:31 98.3 F 54 L 16 130/68 95 Weight Weight 73.663 kg Most Recent Monitor Data Heart Rate from ECG 56 NIBP 127/54 NIBP BP-Mean 78 Respiration from ECG 18 SpO2 96 I&O: 12/02/19 12/03/19 12/04/19 06:59 06:59 06:59 Intake Total 1957 550 360 Balance 1957 550 360 Result Diagrams: 12/01/19 03:58 12/03/19 03:54 Phys Exam - Physical Examination Constitutional: NAD Respiratory: no wheezing, no rales, no rhonchi, clear to auscultation bilateral Cardiovascular: RRR, no significant murmur, no rub Gastrointestinal: soft, non-tender, no distention, positive bowel sounds Musculoskeletal: no edema Dx/Plan - Plan Plan: Plan: 64yo F w/ hx of CAD s/p CABG presented to ED from rehab center for CP, found to have NSTEMI. Recently admitted for subarachnoid and parenchymal hemorrhage of left temporal due to M2 aneurysm that was coiled on 11/18. 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 Ragland - 2 Vessel disease in LAD and Cx, LAD graft had thrombus that was unable to be removed with thrombectomy, patent OM graft, Moderate LV dysfunction - medical management with baby asa, statin, glycemic control, BP control - cardiac rehab -Hx HTN: resume home rx, controlled -Maintain BP <180 2/2 recent coiling and brain bleed Pulm -Satting 97% on RA, non labored breathing GI/F/E/N -Normal abdominal exam -CC diet with LAND LAW EXAMINER modifications -Hx Type II DM - SSI, metformin Heme/I/D -Cell counts WNL -No abx Disposition/LOS: Dispo: admit to tele, ELOS <48 hrs IVF: SL DVT ppx: SCD Diet: CC - LAND LAW EXAMINER modifications PLAN: Tele monitoring. Arranging placement back in inpt rehab for therapies. Pt otherwise stable. Continue medical management of CAD. Patient likely to d/c tomorrow. Addendum - Attending - Attending Attestation Date/Time: 12/04/19 4743 I personally evaluated the patient and discussed the management with Dr. Michael. I agree with the History, Examination, Assessment and Plan documented above with any addition or exceptions noted below.
[2019-12-04] MEDS: Losartan 25 MG TAB PO SCH (09:41)
[2019-12-04] MEDS: Aspirin Chewable 81 MG TAB PO SCH (09:41)
[2019-12-04] MEDS: Ezetimibe 10 MG TAB PO SCH (09:41)
[2019-12-04] MEDS: PARoxetine 20 MG TAB PO SCH (09:42)
[2019-12-04] MEDS: Atorvastatin Calcium 40 MG TAB PO SCH (09:42)
[2019-12-04 12:43] VITALS: BP 122/60
[2019-12-04 17:06] VITALS: TEMP 97.5
--- NOTE | 2019-12-04 22:28 | DIS ---
DATE OF ADMISSION: 11/29/2019 DATE OF DISCHARGE: 12/04/2019 RESIDENT: Abhijeet Michael MD ADMITTING ATTENDING: Reggie Donaldson MD DISCHARGE ATTENDING: Reggie Donaldson MD CONSULTS: 1. Cardiology, Dr. Leyva. 2. Pulmonology, Dr. Mathews. PROCEDURES: None. PRIMARY DIAGNOSIS: Ahr-RK-pstesvdyn myocardial infarction. SECONDARY DIAGNOSES: Dysphagia, left lower lobe aspiration pneumonia, history of subarachnoid hemorrhage due to aneurysm, coronary artery disease status post coronary artery bypass grafting, history of myocardial infarction, diabetes, hypertension, hyperlipidemia. DISCHARGE MEDICATIONS: 1. Atorvastatin 80 mg p.o. daily. 2. Zetia 10 mg p.o. daily. 3. Losartan 100 mg p.o. daily. 4. Paxil 10 mg p.o. daily. 5. Aspirin 81 mg p.o. daily. 6. Metformin 500 mg p.o. b.i.d. DISCONTINUED MEDICATIONS: None. HISTORY OF PRESENT ILLNESS/HOSPITAL COURSE: The patient is a 64-year-old female with past medical history of recent subarachnoid hemorrhage due to ruptured aneurysm with residual right-sided upper extremity weakness and expressive aphasia, who was brought to emergency room after an episode of chest pain during her occupational therapy session. Her family member who was present and reports that the patient became weak, diaphoretic, and was pressing her chest. She also had few episodes of vomiting and an episode of diarrhea afterwards. The patient was unable to give history due to expressive aphasia. In the ER, the patient's troponin was elevated and repeat trended to 33. Cardiology was consulted, the patient got therapeutic Lovenox in the ER. She only received one dose due to recent hemorrhage. The patient got a cath per Cardiology, which showed the thrombus in LAD graft, which they were unable to remove. After the cath, the patient was treated medically. Given her recent hemorrhage, the patient was placed on 81 mg of aspirin everyday. She remained stable in the hospital with no more episodes of chest pain. She continued to have expressive aphasia, but was able to follow commands and seems to understand what we were telling her. The patient was discharged back to inpatient rehab. DISPOSITION: Stable. DISCHARGE INSTRUCTIONS: 1. Location: Inpatient rehab at [facility]. 2. Diet: Her speech therapy. 3. Activity: No restrictions, guidance from occupational and physical therapist at rehab. 4. Followup: Please follow up with her primary care physician, Dr. Cabello within [address] Ragland, container repairer within 14 days. Job ID: [id number] MTDD
--- NOTE | 2019-12-21 14:34 | EKG ---
Test Reason : CP Blood Pressure : / mmHG Vent. Rate : 061 BPM Atrial Rate : 061 BPM P-R Int : 182 ms QRS Dur : 100 ms QT Int : 428 ms P-R-T Axes : 043 003 121 degrees QTc Int : 430 ms Normal sinus rhythm Inferior infarct , age undetermined T wave abnormality, consider lateral ischemia Abnormal ECG Confirmed by MISSY TAY DO ([id number]), department editor MARANDA ZULETA ([id number]) on 12/21/2019 2:34:20 PM Referred By: JASVIR Confirmed By:MISSY TAY DO
--- NOTE | 2019-12-21 14:36 | EKG ---
Test Reason : ELEVATED TROPI Blood Pressure : / mmHG Vent. Rate : 062 BPM Atrial Rate : 062 BPM P-R Int : 178 ms QRS Dur : 094 ms QT Int : 450 ms P-R-T Axes : 036 007 121 degrees QTc Int : 456 ms Normal sinus rhythm Inferior infarct , age undetermined T wave abnormality, consider lateral ischemia T wave inversion V4-V6, worse than prior Abnormal ECG Confirmed by MISSY TAY DO ([id number]), metropolitan editor MARANDA ZULETA ([id number]) on 12/21/2019 2:36:32 PM Referred By: JASVIR Confirmed By:MISSY TAY DO
== END 2019-12-04 18:20 | DRG 250 ==
LOC: ERS 12:22 → CCU 15:36 → 2NO 12-01 20:59
PROVIDERS: ADMIT Emergency Medicine; ATTEND Emergency Medicine
PROC: 02C03ZZ Extirpation of Matter from Coronary Artery, One Artery, Percutaneous Approach (ICD-10-PCS; principal; 2019-11-30)
PROC: 4A023N7 Measurement of Cardiac Sampling and Pressure, Left Heart, Percutaneous Approach (ICD-10-PCS; 2019-11-30)
PROC: B2111ZZ Fluoroscopy of Multiple Coronary Arteries using Low Osmolar Contrast (ICD-10-PCS; 2019-11-30)
PROC: B2131ZZ Fluoroscopy of Multiple Coronary Artery Bypass Grafts using Low Osmolar Contrast (ICD-10-PCS; 2019-11-30)
PROC: B2151ZZ Fluoroscopy of Left Heart using Low Osmolar Contrast (ICD-10-PCS; 2019-11-30)
DX: T82.867A Thrombosis due to cardiac prosthetic devices, implants and grafts, initial encounter (principal); I21.A1 Myocardial infarction type 2; J69.0 Pneumonitis due to inhalation of food and vomit; I69.151 Hemiplegia and hemiparesis following nontraumatic intracerebral hemorrhage affecting right dominant side; I47.2 Ventricular tachycardia; Y83.2 Surgical operation with anastomosis, bypass or graft as the cause of abnormal reaction of the patient, or of later complication, without mention of misadventure at the time of the procedure; R13.10 Dysphagia, unspecified; I25.10 Atherosclerotic heart disease of native coronary artery without angina pectoris; E11.9 Type 2 diabetes mellitus without complications; I10 Essential (primary) hypertension; R00.1 Bradycardia, unspecified; E78.5 Hyperlipidemia, unspecified; Z20.828 Contact with and (suspected) exposure to other viral communicable diseases; Z95.1 Presence of aortocoronary bypass graft; I25.2 Old myocardial infarction; I69.120 Aphasia following nontraumatic intracerebral hemorrhage; Z79.899 Other long term (current) drug therapy; Z79.84 Long term (current) use of oral hypoglycemic drugs; Z90.710 Acquired absence of both cervix and uterus; Z90.722 Acquired absence of ovaries, bilateral; Z95.5 Presence of coronary angioplasty implant and graft; I69.191 Dysphagia following nontraumatic intracerebral hemorrhage
CPT/HCPCS: 36415; 36416; 70450; 71045; 80048; 80053; 82550; 82553; 83735; 84100; 84145; 84443; 84484; 85025; 85347; 87635; 92973; 93005; 93010; 93459; 93798; 94760; 96360; 96361; 96372; C1757; J0153; J1644; J1650; J3010; J3475; J3480; J3490; J7050; Q0163; Q9967; U0003

== ENCOUNTER 2019-12-23 12:51 | Outpatient (CLI) | payer MEDICARE ==
--- NOTE | 2019-12-23 13:14 | CT ---
Head CT without contrast: 12/23/2019 COMPARISON: 11/29/2019 and prior HISTORY: Recent intracranial hemorrhage with coil embolization of intracranial aneurysm TECHNIQUE: Axial CT imaging at 4.5 mm intervals from vertex through skull base without contrast. FINDINGS: Metallic density in the region of the MCA bifurcation on the left again noted, evidence of prior coil embolization. The hemorrhage posterior and lateral to the embolization coils has resolved since the prior exam. The previous study demonstrated left to right midline shift, which has resolved as well. There is hypodensity within the temporal lobe on the left, the left parietal lobe, and foci of hypodensity are seen scattered throughout the deep and subcortical white matter of the left frontal lobe, evidence of areas of prior infarction, subacute/chronic in nature, with interval decrease in the previously noted cytotoxic edema. No acute hemorrhage, midline shift, or mass effect is seen on this examination there IMPRESSION: Interval resolution of previously noted left-sided hemorrhage adjacent to the coil emboli zation. Interval evolution of left-sided infarctions.
== END 2019-12-23 12:52 | disposition home or self-care (01) ==
LOC: TBSIIMAG 12:51
PROVIDERS: ATTEND Neurological Surgery
DX: S06.6X0A Traumatic subarachnoid hemorrhage without loss of consciousness, initial encounter (principal)
CPT/HCPCS: 70450

== ENCOUNTER 2021-05-18 12:12 | Observation (INO) | payer MEDICARE ==
[~2021-05-18 12:12] MED LIST: Iopamidol-370 76% 500 ML 1 ML ONE
[2021-05-18 13:27] LABS: #Eosinphils 0.2 thou/uL (0.0-0.7); #Lymphocytes 1.8 thou/uL (1.20-3.40); #Monocytes 0.6 thou/uL (0.11-0.59); #Neutrophils 4.1 thou/uL (1.40-6.50); %Basophils 0.4 % (0.0-1.0); %Eosinophils 2.8 % (0.0-10.0); %Lymphocytes 26.3 % (21.0-51.0); %Neutrophils 61.5 % (42.0-75.0); Hemoglobin 13.1 g/dL (12.0-16.0); Mean Corpuscular Hemoglobin 31.2 pg (27.0-31.0); Mean Corpuscular Volume 91.8 fL (78.0-98.0); Mean Platelet Volume 7.9 fL (7.4-10.4); Platelet Count 208 thou/uL (130-400); RBC Distribution Width 11.1 % (11.5-14.5); Red Blood Cell (RBC) Count 4.19 mill/uL (4.20-5.40); White Blood Cell (WBC) Count 6.7 thou/uL (4.8-10.8)
[2021-05-18 13:59] LABS: ALT (SGPT) 10 U/L (8-55); AST (SGOT) 14 U/L (5-34); Albumin 3.9 g/dL (3.4-4.8); Alkaline Phosphatase 78 U/L (40-110); Anion Gap 13 mmol/L (10-20); BUN (Urea Nitrogen) 19 mg/dL (9.8-20.1); Bilirubin, Total 0.7 mg/dL (0.2-1.2); Calc. Creatinine Clearance 0 mL/min (70-130); Calcium 9.3 mg/dL (7.8-10.44); Carbon Dioxide 27 mmol/L (23-31); Chloride 104 mmol/L (98-107); Glucose 139 mg/dL (80-115); Lipase 32 U/L (8-78); Potassium 4.6 mmol/L (3.5-5.1); Protein, Total 6.9 g/dL (5.8-8.1); Sodium 139 mmol/L (136-145)
[2021-05-18 14:28] LABS: Bacteria/HPF None Seen HPF (None Seen); Bilirubin Negative (Negative); Blood, Urine 1+ (Negative); Clarity Clear (Clear); Glucose, Urine (Dipstick) Normal (Negative); Ketone, Urine Negative (Negative); Leukocyte Negative Leu/uL (Negative); Nitrite Negative (Negative); Protein, Urine (Dipstick) Negative (Neg-Trace); Specific Gravity, Urine 1.025 (1.002-1.036); Squamous Epithelial 0-3 HPF (0-3); Urobilinogen 3 mg/dL (Less than 2); WBC/HPF 0-3 HPF (0-3); pH, Urine 6.5 (5.0-9.0)
[2021-05-18] MEDS ORDERED: metroNIDAZOLE 500 MG in Premix Bag 1 BAG IVPB SCH ×2 (15:00→22:00)
[2021-05-18] MEDS ORDERED: HumaLOG 300 UNITS/3 ML VIAL SC PRN ×2 (15:54)
[2021-05-18] MEDS ORDERED: Ondansetron ODT 4 MG TAB PO PRN (15:54)
[2021-05-18] MEDS ORDERED: Acetaminophen 325 MG TAB PO PRN (15:54)
[2021-05-18] MEDS ORDERED: Dextrose 5% in Water 1,000 ML IV PRN (15:54)
[2021-05-18] MEDS ORDERED: Dextrose 50% Abboject 50 ML SYRINGE SLOW IVP PRN (15:54)
[2021-05-18] MEDS ORDERED: Ondansetron PF 4 MG/2 ML Vial IVP PRN (16:15)
[2021-05-18] MEDS ORDERED: Sodium Chloride 0.9% 1,000 ML IV SCH (16:15)
[2021-05-18] MEDS ORDERED: Ondansetron ODT 4 MG TAB SL PRN (16:15)
[2021-05-18 16:46] VITALS: BMI 27.4
[2021-05-18] MEDS: Lactated Ringer's 1,000 ML IV SCH (17:20)
[2021-05-18] MEDS: metFORMIN 500 MG TAB PO SCH (17:21)
[2021-05-18] MEDS: Carvedilol 3.125 MG TAB PO SCH (20:13)
[2021-05-18] MEDS ORDERED: Atorvastatin Calcium 40 MG TAB PO SCH (21:00)
[2021-05-19] MEDS: metroNIDAZOLE 500 MG TAB PO SCH ×3 (00:48→15:42)
[2021-05-19] MEDS: Lactated Ringer's 1,000 ML IV SCH ×2 (00:48→09:07)
[2021-05-19 05:48] LABS: #Eosinphils 0.2 thou/uL (0.0-0.7); #Monocytes 0.8 thou/uL (0.11-0.59); #Neutrophils 4.4 thou/uL (1.40-6.50); %Basophils 0.4 % (0.0-1.0); %Eosinophils 3.2 % (0.0-10.0); %Lymphocytes 26.5 % (21.0-51.0); %Monocytes 10.5 % (0.0-10.0); %Neutrophils 59.4 % (42.0-75.0); Hemoglobin 11.1 g/dL (12.0-16.0); Mean Corpuscular HGB CONC 34.2 g/dL (32.0-36.0); Mean Corpuscular Hemoglobin 31.7 pg (27.0-31.0); Mean Corpuscular Volume 92.7 fL (78.0-98.0); Mean Platelet Volume 7.8 fL (7.4-10.4); Platelet Count 165 thou/uL (130-400); Red Blood Cell (RBC) Count 3.49 mill/uL (4.20-5.40); White Blood Cell (WBC) Count 7.4 thou/uL (4.8-10.8)
[2021-05-19 06:15] LABS: ALT (SGPT) 9 U/L (8-55); AST (SGOT) 11 U/L (5-34); Albumin 3.2 g/dL (3.4-4.8); Alkaline Phosphatase 62 U/L (40-110); Anion Gap 10 mmol/L (10-20); BUN (Urea Nitrogen) 14 mg/dL (9.8-20.1); Bilirubin, Total 0.4 mg/dL (0.2-1.2); Calc. Creatinine Clearance 95 mL/min (70-130); Calcium 8.7 mg/dL (7.8-10.44); Carbon Dioxide 28 mmol/L (23-31); Chloride 106 mmol/L (98-107); Globulin 2.7 g/dL (2.4-3.5); Glucose 106 mg/dL (80-115); Potassium 3.9 mmol/L (3.5-5.1); Protein, Total 5.9 g/dL (5.8-8.1); Sodium 140 mmol/L (136-145)
[2021-05-19] MEDS ORDERED: Ezetimibe 10 MG TAB PO SCH (09:00)
[2021-05-19] MEDS ORDERED: Valsartan 80 MG TAB PO SCH (09:00)
[2021-05-19] MEDS ORDERED: Enoxaparin Sodium 40 MG/0.4 ML SYRINGE SC SCH (09:00)
[2021-05-19] MEDS ORDERED: Aspirin Chewable 81 MG TAB PO SCH (09:00)
[2021-05-19] MEDS ORDERED: Hydrochlorothiazide 25 MG TAB PO SCH (09:00)
[2021-05-19] MEDS ORDERED: PARoxetine 20 MG TAB PO SCH (09:00)
[2021-05-19] MEDS: Carvedilol 3.125 MG TAB PO SCH ×2 (09:03→15:42)
[2021-05-19] MEDS: metFORMIN 500 MG TAB PO SCH (09:03)
[2021-05-19 11:58] VITALS: BP 120/71; TEMP 97.7
[2021-05-19 17:56] LABS: SARS-CoV-2 PCR by NAA Not Detected (NotDetected)
== END 2021-05-19 15:53 | disposition home or self-care (01) ==
LOC: ERS 12:12 → T4-A 14:54 → INTOOBSV 14:54
PROVIDERS: ADMIT Family Medicine; ATTEND Family Medicine
DX: K57.00 Diverticulitis of small intestine with perforation and abscess without bleeding (principal); I69.120 Aphasia following nontraumatic intracerebral hemorrhage; I10 Essential (primary) hypertension; E78.5 Hyperlipidemia, unspecified; E11.9 Type 2 diabetes mellitus without complications; I25.10 Atherosclerotic heart disease of native coronary artery without angina pectoris; I69.151 Hemiplegia and hemiparesis following nontraumatic intracerebral hemorrhage affecting right dominant side; I69.198 Other sequelae of nontraumatic intracerebral hemorrhage; R20.9 Unspecified disturbances of skin sensation; Z79.82 Long term (current) use of aspirin; Z79.84 Long term (current) use of oral hypoglycemic drugs; Z79.899 Other long term (current) drug therapy; Z95.1 Presence of aortocoronary bypass graft; Z20.822 Contact with and (suspected) exposure to COVID-19
CPT/HCPCS: 36415; 36416; 74177; 80053; 81003; 81015; 83690; 85025; 93005; 96365; J1650; J1956; J7120; Q9967; U0003; U0005